=== PATIENT | female | born 1970 | race American Indian/Alaskan Native ===

== ENCOUNTER 2016-06-20 08:55 | Outpatient (CLI) | payer MEDICAID ==
--- NOTE | 2016-06-21 09:56 | Mammography Report ---
BILATERAL MAMMOGRAM: FINDINGS: There are scattered fibroglandular densities (approximately 25%-50% glandular). No mass, distortion, suspicious calcification, or skin change is seen. CAD was utilized. IMPRESSION: Negative mammogram. There is no mammographic evidence of malignancy. RECOMMENDATION: Follow-up per ACS guidelines. BI-RADS CATEGORY: 1 = Negative ACR BI-RADS MAMMOGRAPHIC CODES: 0 = Needs additional imaging evaluation; 1 = Negative; 2 = Benign; 3 = Probably benign; 4 = Suspicious; 5 = Malignant; 6 = Known biopsy-proven malignancy COMMENT: 1. Dense breast tissue, i.e., adenosis, fibrocystic changes, etc., may obscure an underlying neoplasm. 2. Approximately 10% of cancers are not detected with mammography. 3. A negative mammography report should not delay biopsy if a clinically suspicious mass is present. COMMENT: Patient follow-up letters are generated in [employer].
== END 2016-06-20 08:56 | disposition home or self-care (01) ==
LOC: MAMMO 08:55
PROVIDERS: ATTEND Advanced Practice Midwife
DX: Z12.31 Encounter for screening mammogram for malignant neoplasm of breast (principal)
CPT/HCPCS: 77067; G0202

== ENCOUNTER 2017-12-16 13:05 | Outpatient (CLI) | payer BC ==
--- NOTE | 2017-12-17 07:41 | Mammography Report ---
BILATERAL MAMMOGRAM: FINDINGS: The breast tissue is heterogeneously dense, which could obscure detection of small masses (approximately 50%-75% glandular). No mass, distortion, suspicious calcification, or skin change is seen. No significant change compared to prior examination in June 2016. CAD was utilized. IMPRESSION: Negative mammogram. There is no mammographic evidence of malignancy. RECOMMENDATION: Follow-up per ACS guidelines. BI-RADS CATEGORY: 1 = Negative ACR BI-RADS MAMMOGRAPHIC CODES: 0 = Needs additional imaging evaluation; 1 = Negative; 2 = Benign; 3 = Probably benign; 4 = Suspicious; 5 = Malignant; 6 = Known biopsy-proven malignancy COMMENT: 1. Dense breast tissue, i.e., adenosis, fibrocystic changes, etc., may obscure an underlying neoplasm. 2. Approximately 10% of cancers are not detected with mammography. 3. A negative mammography report should not delay biopsy if a clinically suspicious mass is present. COMMENT: Patient follow-up letters are generated in [employer].
== END 2017-12-16 13:06 | disposition home or self-care (01) ==
LOC: MAMMO 13:05
PROVIDERS: ATTEND Advanced Practice Midwife
DX: Z12.31 Encounter for screening mammogram for malignant neoplasm of breast (principal); K21.9 Gastro-esophageal reflux disease without esophagitis; E66.9 Obesity, unspecified; Z86.010 Personal history of colon polyps; Z90.49 Acquired absence of other specified parts of digestive tract
CPT/HCPCS: 77067

== ENCOUNTER 2019-02-18 10:41 | Emergency (ER) | payer BC ==
[2019-02-18] MEDS ORDERED: TYLENOL PO ONE (13:04)
[2019-02-18] MEDS ORDERED: ZOFRAN ODT PO ONE (13:04)
[2019-02-18 13:45] LABS: Basophils # (Auto) 0.1 K/mm3 (0.0-0.1); Basophils % (Auto) 0.8 % (0.0-1.8); Eosinophils # (Auto) 0.1 K/mm3 (0.0-0.4); Eosinophils % (Auto) 1.5 % (0.0-4.3); Hemoglobin 15.1 gm/dl (10.1-14.3); Lymphocytes # (Auto) 1.8 K/mm3 (1.2-5.4); Lymphocytes % (Auto) 26.8 % (13.4-35.0); Mean Corpuscular HGB Conc 34 % (30-34); Mean Corpuscular Volume 98 fl (79-97); Monocytes # (Auto) 0.6 K/mm3 (0.0-0.8); Monocytes % (Auto) 8.6 % (0.0-7.3); Platelet Count 229 K/mm3 (140-440); Red Cell Distribution Width 12.7 % (13.2-15.2)
--- NOTE | 2019-02-18 13:53 | XRay Report ---
CHEST 2 VIEWS INDICATION: chest pain. COMPARISON: None FINDINGS: Support devices: None. Heart: Within normal limits. Lungs/pleura: No acute air space or interstitial disease. No pneumothorax. Additional findings: None. IMPRESSION: No acute findings. Signer Name: Santi Liang Jr, MD Signed: 02/18/2019 1:49 PM Workstation Name: [id number]
[2019-02-18 14:22] LABS: Alanine Aminotransferase 12 units/L (7-56); Albumin 4.8 g/dL (3.9-5); BUN/Creatinine Ratio 13; Blood Urea Nitrogen 9 mg/dL (7-17); Calcium 9.7 mg/dL (8.4-10.2); Hemolysis Index 11
--- NOTE | 2019-02-18 14:53 | Emergency Department Report ---
ED General Adult HPI - General Chief complaint: Chest Pain Stated complaint: LIGHT HEADED/HBP Time Seen by Provider: 02/18/19 11:58 Source: patient Mode of arrival: Ambulatory Limitations: No Limitations - History of Present Illness Initial comments: 48-year-old female comes in complaining of hypertension, lightheadedness and sharp pain across her chest earlier this morning. Patient denies any chest pain at this moment. She does admit to nausea and sweating at that time. Patient has a past medical history of acid reflux currently takes no medications. -: This morning Location: chest Radiation: non-radiation Consistency: now resolved Associated Symptoms: diaphoresis Treatments Prior to Arrival: none - Related Data Home Medications Medication Instructions Recorded Confirmed Last Taken Naproxen 375 mg PO PRN PRN 10/12/15 01/02/16 Unknown Ranitidine HCl 150 mg PO BID 10/12/15 01/02/16 09/28/15 Previous Rx's Medication Instructions Recorded Last Taken Type HYDROcodone/APAP 5-325 [Delaplane 1 each PO Q6HR PRN #20 tablet 12/25/15 12/29/15 Rx 5-325 mg TAB] Ibuprofen [Motrin 800 MG tab] 800 mg PO Q8HR PRN #30 tablet 12/25/15 12/31/15 Rx hydroCHLOROthiazide [Hctz] 12.5 mg PO QDAY #30 capsule 02/18/19 Unknown Rx Allergies Allergy/AdvReac Type Severity Reaction Status Date / Time No Known Allergies Allergy Verified 12/24/15 20:50 ED Review of Systems ROS: Stated complaint: LIGHT HEADED/HBP Other details as noted in HPI Comment: All other systems reviewed and negative ED Past Medical Hx - Past Medical History Previous Medical History?: Yes Hx Hypertension: No Hx CVA: No Hx Heart Attack/AMI: No Hx Congestive Heart Failure: No Hx Diabetes: No Hx Deep Vein Thrombosis: No Hx Pulmonary Embolism: No Hx GERD: Yes Hx Liver Disease: No Hx Renal Disease: No Hx Sickle Cell Disease: No Hx Arthritis: No Hx Headaches / Migraines: No Hx Seizures: No Hx Kidney Stones: No Hx Psychiatric Treatment: No Hx Asthma: No Hx COPD: No Hx Tuberculosis: No Hx Dementia: No Hx HIV: No - Surgical History Past Surgical History?: Yes Hx Coronary Stent: No Hx Open Heart Surgery: No Hx Pacemaker: No Hx Internal Defibrillator: No Hx Cholecystectomy: No Hx Appendectomy: Yes Hx Breast Surgery: No - Social History Smoking Status: Never Smoker Substance Use Type: None - Medications Home Medications: Home Medications Medication Instructions Recorded Confirmed Last Taken Type Naproxen 375 mg PO PRN PRN 10/12/15 01/02/16 Unknown History Ranitidine HCl 150 mg PO BID 10/12/15 01/02/16 09/28/15 History HYDROcodone/APAP 5-325 [Delaplane 1 each PO Q6HR PRN #20 tablet 12/25/15 01/02/16 12/29/15 Rx 5-325 mg TAB] Ibuprofen [Motrin 800 MG tab] 800 mg PO Q8HR PRN #30 tablet 12/25/15 01/02/16 12/31/15 Rx hydroCHLOROthiazide [Hctz] 12.5 mg PO QDAY #30 capsule 02/18/19 Unknown Rx ED Physical Exam - General Limitations: No Limitations General appearance: alert, in no apparent distress - Head Head exam: Present: atraumatic, normocephalic - Eye Eye exam: Present: normal appearance - ENT ENT exam: Present: mucous membranes moist - Neck Neck exam: Present: normal inspection - Respiratory Respiratory exam: Present: normal lung sounds bilaterally. Absent: respiratory distress - Cardiovascular Cardiovascular Exam: Present: regular rate, normal rhythm. Absent: systolic mu rmur, diastolic murmur, rubs, gallop - GI/Abdominal GI/Abdominal exam: Present: soft, normal bowel sounds. Absent: tenderness - Extremities Exam Extremities exam: Present: normal inspection - Back Exam Back exam: Present: normal inspection - Neurological Exam Neurological exam: Present: alert, oriented X3, normal gait - Psychiatric Psychiatric exam: Present: normal affect, normal mood - Skin Skin exam: Present: warm, dry, intact, normal color. Absent: rash ED Course Vital Signs 02/18/19 02/18/19 10:52 13:29 Temperature 98.5 F Pulse Rate 87 Respiratory 18 18 Rate Blood Pressure 167/95 [Left] O2 Sat by Pulse 100 Oximetry ED Medical Decision Making - Lab Data Result diagrams: 02/18/19 13:31 02/18/19 13:31 - Medical Decision Making 48-year-old female comes in complaining of hypertension, lightheadedness and sharp pain across her chest earlier this morning. Patient denies any chest pain at this moment. She does admit to nausea and sweating at that time. Patient has a past medical history of acid reflux currently takes no medications. EKG normal. 2 troponins are negative. Labs are stable. Patient to be discharged with hydrochlorothiazide 12.5 mg daily and to follow-up with the primary care provider. Critical care attestation.: If time is entered above; I have spent that time in minutes in the direct care of this critically ill patient, excluding procedure time. ED Disposition Clinical Impression: HTN (hypertension) Qualifiers: Hypertension type: unspecified Qualified Code(s): I10 - Essential (primary) hypertension Disposition: - TO HOME OR SELFCARE Is pt being admited?: No Does the pt Need Aspirin: No Condition: Stable Instructions: Hypertension (ED) Prescriptions: hydroCHLOROthiazide [Hctz] 12.5 mg PO QDAY #30 capsule Forms: Work/School Release Form(ED)
[2019-02-18 17:19] VITALS: BP 145/92
== END 2019-02-18 17:17 | disposition home or self-care (01) ==
LOC: ED 10:41
DX: I10 Essential (primary) hypertension (principal); K21.9 Gastro-esophageal reflux disease without esophagitis; Z98.890 Other specified postprocedural states; Z79.899 Other long term (current) drug therapy
CPT/HCPCS: 36415; 71046; 80053; 84484; 85025; 93005; 93010; 99284; Q0162

== ENCOUNTER 2020-04-13 13:31 | Outpatient (CLI) | payer BC ==
--- NOTE | 2020-04-13 15:44 | Mammography Report ---
DIGITAL SCREENING MAMMOGRAM WITH CAD, 04/13/2020 CLINICAL INFORMATION / INDICATION: Routine screening mammography. TECHNIQUE: Digital bilateral 2D mammography was obtained in the craniocaudal and mediolateral obliqu e projections. This examination was interpreted with the benefit of Computer-Aided Detection analysis . COMPARISON: 12/16/2017 FINDINGS: Breast Density: The breasts are heterogeneously dense, which may obscure small masses. No dominant mass, suspicious calcifications, or architectural distortion in the left breast. In cc view only possible new faint grouped microcalcifications are noted in the central breast just m edial to the plane of the nipple at mid to posterior depth. IMPRESSION: Questionable new grouped calcifications of the right Follow up recommendation: Right magnification views BI-RADS Category 0: Incomplete. Needs additional imaging evaluation and/or prior mammograms for chevy gallardo. A "normal" or negative report should not discourage follow up or biopsy of a clinically significant f inding. A written summary of these findings will be mailed to the patient. The patient will be entered into a mammography reporting system which will generate a reminder letter for the patient's next appointmen t at the appropriate interval. The [employer] recommends yearly mammograms starting at age 40 and continuing as l poly as a woman is in good health. Breast MRI is recommended for women with an approximate 20-25% or greater lifetime risk of breast cancer, including women with a strong family history of breast or ova nolberto cancer or who have been treated for Hodgkin's disease. Signer Name: Sebastián Hu MD Signed: 04/13/2020 3:39 PM Workstation Name: [id number]
== END 2020-04-13 13:32 | disposition home or self-care (01) ==
LOC: MAMMO 13:31
PROVIDERS: ATTEND Advanced Practice Midwife
DX: Z12.31 Encounter for screening mammogram for malignant neoplasm of breast (principal)
CPT/HCPCS: 77067

== ENCOUNTER 2020-05-16 15:08 | Outpatient (CLI) | payer BC ==
--- NOTE | 2020-05-16 16:36 | Mammography Report ---
DIGITAL DIAGNOSTIC MAMMOGRAM WITH CAD , 05/16/2020 CLINICAL INFORMATION / INDICATION: Abnormal screening mammogram. The patient was recalled from screen ing for possible calcifications in the right breast seen on the CC view only. TECHNIQUE: Digital right mammographic imaging was performed. Magnification views were obtained. This examination was interpreted with the benefit of Computer-aided Detection analysis. COMPARISON: 04/13/2020, 12/16/2017, 06/20/2016 FINDINGS: Breast Density: The breasts are heterogeneously dense, which may obscure small masses. Magnification views of the right breast were obtained which do not demonstrate a suspicious cluster o f microcalcifications within the central right breast. There are a few loosely grouped calcifications scattered throughout the superior aspect of the breast which have a benign morphology and do not lauren ear significantly changed when compared to multiple prior mammograms. IMPRESSION: No evidence of suspicious microcalcifications in the right breast. A six-month follow-up right mammogram with magnification views is recommended to confirm stability. Follow up recommendation: Short term follow up in 6 months. BI-RADS Category 3: Probably Benign. Followup in 6 months. A "normal" or negative report should not discourage follow up or biopsy of a clinically significant f inding. A written summary of these findings will be mailed to the patient. The patient will be entered into a mammography reporting system which will generate a reminder letter for the patient's next appointmen t at the appropriate interval. According to the [employer], yearly mammograms are recommended starting at age 40 and continuing as long as a woman is in good health. Breast MRI is recommended for women with an lauren roximately 20-25% or greater lifetime risk of breast cancer, including women with a strong family his tory of breast or ovarian cancer and women who have been treated for Hodgkin's disease. Signer Name: Cassidy Griffith MD Signed: 05/16/2020 4:32 PM Workstation Name: [id number]
== END 2020-05-16 15:09 | disposition home or self-care (01) ==
LOC: SPVWC 15:08 → US 15:08 → SPVWC 15:09
PROVIDERS: ATTEND Advanced Practice Midwife
DX: R92.1 Mammographic calcification found on diagnostic imaging of breast (principal)

== ENCOUNTER 2020-11-08 11:08 | Outpatient (CLI) | payer BC ==
--- NOTE | 2020-11-08 12:26 | Mammography Report ---
DIGITAL DIAGNOSTIC MAMMOGRAM WITH CAD , 11/08/2020 CLINICAL INFORMATION / INDICATION: 6 MTH FOLLOW UP TECHNIQUE: Digital right mammographic imaging was performed. Magnification views were obtained. This examination was interpreted with the benefit of Computer-aided Detection analysis. COMPARISON: Recent mammograms including 05/16/2020, 04/13/2020, 12/16/2017 FINDINGS: Breast Density: The breasts are heterogeneously dense, which may obscure small masses. No dominant mass, suspicious calcifications or architectural distortion in the right breast. Previously described calcifications in the retroareolar right breast, middle depth, remain grossly st able in appearance and are highly likely benign. I would recommend one additional 6 month follow-up m ammogram to assess stability. IMPRESSION: Probably benign. Stable calcifications central right breast. Follow up recommendation: Short term follow up in 6 months. BI-RADS Category 3: Probably Benign. Followup in 6 months. A "normal" or negative report should not discourage follow up or biopsy of a clinically significant f inding. A written summary of these findings will be mailed to the patient. The patient will be entered into a mammography reporting system which will generate a reminder letter for the patient's next appointmen t at the appropriate interval. According to the [employer], yearly mammograms are recommended starting at age 40 and continuing as long as a woman is in good health. Breast MRI is recommended for women with an lauren roximately 20-25% or greater lifetime risk of breast cancer, including women with a strong family his tory of breast or ovarian cancer and women who have been treated for Hodgkin's disease. Signer Name: Mari Ruiz MD Signed: 11/08/2020 12:22 PM Workstation Name: [id number]
== END 2020-11-08 11:09 | disposition home or self-care (01) ==
LOC: MAMMO 11:08
PROVIDERS: ATTEND Advanced Practice Midwife
DX: R92.1 Mammographic calcification found on diagnostic imaging of breast (principal)